=== PATIENT | female | born 1950 | race Two or more races ===

== ENCOUNTER 2018-11-20 12:37 | Outpatient (CLI) | payer OTHER | END 2018-11-20 12:51 | disposition home or self-care (01) | LOC: TOM 12:37 | DX: J44.9 Chronic obstructive pulmonary disease, unspecified (principal); J43.8 Other emphysema; F17.200 Nicotine dependence, unspecified, uncomplicated ==

== ENCOUNTER 2019-02-13 15:00 | Outpatient (CLI) | payer OTHER | END 2019-02-13 15:16 | disposition home or self-care (01) | LOC: RAD 15:00 | DX: M65.4 Radial styloid tenosynovitis [de Quervain] (principal); R07.89 Other chest pain ==

== ENCOUNTER 2022-02-08 12:56 | Outpatient (CLI) | payer OTHER | END 2022-02-20 14:56 | disposition home or self-care (01) | LOC: MAMO-SONO 12:56 | PROVIDERS: ATTEND Internal Medicine Cardiovascular Disease | DX: N63.11 Unspecified lump in the right breast, upper outer quadrant (principal) ==

== ENCOUNTER 2022-04-27 13:37 | Outpatient (CLI) | payer OTHER | END 2022-04-27 13:38 | disposition home or self-care (01) | LOC: RAD 13:37 | PROVIDERS: ATTEND Internal Medicine Cardiovascular Disease | DX: M12.9 Arthropathy, unspecified (principal) ==

== ENCOUNTER 2022-06-09 13:16 | Outpatient (CLI) | payer OTHER | END 2022-06-09 13:23 | disposition home or self-care (01) | LOC: MRI 13:16 | DX: S83.242A Other tear of medial meniscus, current injury, left knee, initial encounter (principal) | CPT/HCPCS: 73718 ==